=== PATIENT | female | born 1990 | race Caucasian/White ===

== ENCOUNTER 2023-04-23 13:17 | Emergency (ER) | payer OTHER ==
[~2023-04-23] VITALS: Ht 167.6 cm; Wt 59.4 kg
[2023-04-23 14:56] LABS: BASOPHILS % (AUTO) 0.2 % (0.0-2.0); EOSINOPHILS # (AUTO) 0.1 K/uL (0.0-0.7); EOSINOPHILS % (AUTO) 1.2 % (0.0-6.0); HEMATOCRIT 41 % (33-45); HEMOGLOBIN 13.8 g/dL (11.5-14.8); LYMPHOCYTES # (AUTO) 1.7 K/uL (0.8-4.8); MEAN CORPUSCULAR HEMOGLOBIN 31 PG (26.0-33.0); MEAN CORPUSCULAR HGB CONC 34 g/dl (31.0-36.0); MEAN CORPUSCULAR VOLUME 90 fL (82-100); MONOCYTES # (AUTO) 0.3 K/uL (0.1-1.30); MONOCYTES % (AUTO) 5.3 % (2.0-12.0); NEUTROPHILS # (AUTO) 3.7 K/uL (1.8-8.9); NEUTROPHILS % (AUTO) 64.3 % (43.0-81.0); PLATELET COUNT (AUTO) 243 K/uL (150-450); RED BLOOD CELL COUNT(AUTO) 4.48 MIL/uL (4.0-5.2); RED CELL DISTRIBUTION WIDTH 12.7 % (11.5-15.0); WHITE BLOOD COUNT (AUTO) 5.8 K/uL (4.3-11.0)
[2023-04-23 15:04] LABS: CALCIUM, SERUM 8.9 mg/dL (8.5-10.1); CARBON DIOXIDE 27 mmol/L (21-32); CHLORIDE 106 mmol/L (98-107); CREATININE 0.9 mg/dL (0.6-1.3); GLUCOSE 71 mg/dL (74-106); POTASSIUM 3.8 mmol/L (3.5-5.1); SODIUM SERUM 139 mmol/L (136-145); UREA NITROGEN, BLOOD 11 mg/dL (7-18)
[2023-04-23 15:16] LABS: NT-PRO BNP 36 pg/mL (0-125)
[2023-04-23] MEDS ORDERED: IV NS 0.9% 250 ML IV ONE (15:32)
[2023-04-23] MEDS ORDERED: IOHEXOL-350 100 ML VIAL IV ONE (15:32)
[2023-04-23] MEDS ORDERED: CT SWABBABLE VALVE TRANS SET 1 EA INFUS.SET MC ONE (15:32)
[2023-04-23 16:22] LABS: PREGNANCY TEST URINE QUAL NEGATIVE (NEGATIVE)
[2023-04-23 16:41] VITALS: BP 109/77; TEMP 98.7; O2SAT 100
== END 2023-04-23 16:37 | disposition home or self-care (01) ==
LOC: ER 13:21
DX: R07.9 Chest pain, unspecified (principal); R10.2 Pelvic and perineal pain; Z60.2 Problems related to living alone
CPT/HCPCS: 99285; 71275; 93005; 85025; 80048; 85378; 84703; 36415; 84484; 83880; 84702; J7050; Q9967

== ENCOUNTER 2024-05-29 08:22 | Inpatient (IN) | payer OTHER ==
[~2024-05-29] VITALS: Ht 167.6 cm; Wt 63.5 kg
[2024-05-29 08:48] LABS: BASOPHILS # (AUTO) 0.1 K/uL (0.0-0.2); BASOPHILS % (AUTO) 1.2 % (0.0-2.0); EOSINOPHILS # (AUTO) 0.1 K/uL (0.0-0.7); HEMATOCRIT 43 % (33-45); HEMOGLOBIN 14.8 g/dL (11.5-14.8); LYMPHOCYTES # (AUTO) 1.1 K/uL (0.8-4.8); LYMPHOCYTES % (AUTO) 24.7 % (20.0-44.0); MEAN CORPUSCULAR HEMOGLOBIN 31 PG (26.0-33.0); MEAN CORPUSCULAR HGB CONC 35 g/dl (31.0-36.0); MEAN CORPUSCULAR VOLUME 90 fL (82-100); MONOCYTES # (AUTO) 0.2 K/uL (0.1-1.30); MONOCYTES % (AUTO) 5.3 % (2.0-12.0); NEUTROPHILS # (AUTO) 2.9 K/uL (1.8-8.9); NEUTROPHILS % (AUTO) 66.8 % (43.0-81.0); PLATELET COUNT (AUTO) 228 K/uL (150-450); RED BLOOD CELL COUNT(AUTO) 4.77 MIL/uL (4.0-5.2); RED CELL DISTRIBUTION WIDTH 12.7 % (11.5-15.0); WHITE BLOOD COUNT (AUTO) 4.4 K/uL (4.3-11.0)
[2024-05-29 08:54] LABS: CARBON DIOXIDE 27 mmol/L (21-32); CHLORIDE 107 mmol/L (98-107); CREATININE 1.1 mg/dL (0.6-1.3); GLUCOSE 149 mg/dL (74-106); POTASSIUM 3.8 mmol/L (3.5-5.1); SODIUM SERUM 140 mmol/L (136-145); UREA NITROGEN, BLOOD 6 mg/dL (7-18)
[2024-05-29] MEDS: KETOROLAC TROMETHAMINE 15 MG/ML VIAL IV ONE (09:09)
[2024-05-29 09:16] LABS: PREGNANCY TEST URINE QUAL NEGATIVE (NEGATIVE)
[2024-05-29] MEDS ORDERED: ASPIRIN 81 MG TAB.CHEW ONE (09:43)
[2024-05-29] MEDS: ASPIRIN 81 MG TAB.CHEW PO ONE (09:48)
[2024-05-29] MEDS ORDERED: [UNRECOGNIZED DRUG - CODE] PO (10:08)
[2024-05-29] MEDS ORDERED: ACETAMINOPHEN 325 MG TABLET PO PRN (12:00)
[2024-05-29] MEDS ORDERED: Z GUARD REMEDY 4 OZ OINT TP PRN (12:00)
[2024-05-29] MEDS ORDERED: ONDANSETRON HCL/PF 4 MG/2 ML VIAL IVP PRN (12:00)
[2024-05-29] MEDS ORDERED: ZOLPIDEM TARTRATE 5 MG TABLET PO PRN (12:00)
[2024-05-29] MEDS ORDERED: MAGNESIUM HYDROXIDE 30 ML UDC PO PRN (12:00)
[2024-05-29] MEDS ORDERED: MAG HYDROX/AL HYDROX/SIMETH 30 ML UDC PO PRN (12:00)
[2024-05-29 12:14] VITALS: O2SAT 99
[2024-05-29 13:00] VITALS: BP 122/92; TEMP 98.1; O2SAT 100
[2024-05-29 16:08] VITALS: BP 108/90; TEMP 98.2; O2SAT 99
[2024-05-29 20:00] VITALS: BP 123/84; TEMP 98.6; O2SAT 99
[2024-05-30] VITALS: BP 108/72; TEMP 98.4; O2SAT 99
[2024-05-30 04:00] VITALS: BP 109/77; TEMP 98.6; O2SAT 99
[2024-05-30 05:56] LABS: BASOPHILS % (AUTO) 0.4 % (0.0-2.0); EOSINOPHILS # (AUTO) 0.1 K/uL (0.0-0.7); EOSINOPHILS % (AUTO) 2.8 % (0.0-6.0); HEMATOCRIT 41 % (33-45); HEMOGLOBIN 14.3 g/dL (11.5-14.8); LYMPHOCYTES # (AUTO) 1.8 K/uL (0.8-4.8); LYMPHOCYTES % (AUTO) 33.6 % (20.0-44.0); MEAN CORPUSCULAR HEMOGLOBIN 31 PG (26.0-33.0); MEAN CORPUSCULAR HGB CONC 35 g/dl (31.0-36.0); MEAN CORPUSCULAR VOLUME 90 fL (82-100); MONOCYTES # (AUTO) 0.4 K/uL (0.1-1.30); MONOCYTES % (AUTO) 6.9 % (2.0-12.0); NEUTROPHILS % (AUTO) 56.3 % (43.0-81.0); PLATELET COUNT (AUTO) 206 K/uL (150-450); RED BLOOD CELL COUNT(AUTO) 4.59 MIL/uL (4.0-5.2); RED CELL DISTRIBUTION WIDTH 12.4 % (11.5-15.0); WHITE BLOOD COUNT (AUTO) 5.3 K/uL (4.3-11.0)
[2024-05-30 06:22] LABS: CALCIUM, SERUM 8.9 mg/dL (8.5-10.1); CREATININE 0.9 mg/dL (0.6-1.3); MAGNESIUM 2.1 mg/dL (1.8-2.4); POTASSIUM 4.2 mmol/L (3.5-5.1)
[2024-05-30 07:00] VITALS: BP 105/73; TEMP 98.6; O2SAT 98
[2024-05-30] MEDS ORDERED: ASPIRIN 81 MG TAB.CHEW PO SCH (09:00)
[2024-05-30] MEDS: IBUPROFEN 600 MG TABLET PO PRN (09:40)
[2024-05-30 10:39] VITALS: TEMP 98.6
[2024-05-30] MEDS: TRAMADOL HCL 50 MG TABLET PO ONE (11:53)
[2024-05-30] MEDS ORDERED: IBUP-1955 PO (13:58)
== END 2024-05-30 15:18 | disposition home or self-care (01) | DRG 282 ==
LOC: ER 08:28 → TELE 11:56
PROVIDERS: ADMIT Nurse Practitioner Acute Care; ATTEND Nurse Practitioner Acute Care
DX: I51.4 Myocarditis, unspecified (principal); I21.A1 Myocardial infarction type 2; Z79.899 Other long term (current) drug therapy; F41.9 Anxiety disorder, unspecified; Z86.19 Personal history of other infectious and parasitic diseases; G93.31 Postviral fatigue syndrome
CPT/HCPCS: 36415; 71045-TC; 80048-TC; 83735-TC; 84100-TC; 84484-TC; 84703-TC; 85025-TC; 85378-TC; 93307-TC; G0378; J1885